=== PATIENT | female | born 1955 | race African-American/Black ===

== ENCOUNTER 2019-03-03 10:10 | Day surgery (SDC) | payer MEDICARE ==
[2019-02-28 11:10] VITALS: BMI 31.0
[2019-03-03] MEDS ORDERED: Midazolam HCl 2 mg/2 ml Vial ONE (11:37)
--- NOTE | 2019-03-03 13:04 | MRI ---
LUMBAR SPINE MRI WITH AND WITHOUT CONTRAST: DATE: 03/03/2019. HISTORY: Back pain with lower extremity radiculopathy. TECHNIQUE: Multiplanar multisequence MR imaging of the lumbar spine provided with and without contrast. FINDINGS: Posterior fusion hardware present at the lumbosacral junction which appears to include bilateral L5 a nd S1 pedicle screws with vertically oriented interlocking rods. The sagittal STIR imaging demonstrates no focal area of osseous marrow edema. On the basis of 5 lumbar type vertebral bodies, the conus medullaris terminates at the T12-L1 level. T12-L1: Intervertebral disc height and signal intensity is within normal limits. Bilateral facet hype rtrophy noted. No significant central canal or neural foraminal stenosis. L1-2: There is disc space narrowing and disc desiccation with disc bulge. Bilateral laminectomy williamson es are present. Bilateral facet hypertrophy is noted with mild left neural foraminal stenosis. L2-3: There is disc space narrowing and disc desiccation with disc bulge. Bilateral laminectomy williamson es are present. No central canal stenosis. No significant neural foraminal stenosis. L3-4: There is disc space narrowing and disc desiccation with disc bulge. Bilateral laminectomy williamson es are present. No central canal stenosis. There is moderate right and mild left neural foraminal stenosis. L4-5: Disc space narrowing with disc desiccation and disc bulge. Bilateral laminectomy changes with n o significant central canal stenosis. Bilateral facet hypertrophy with moderate bilateral neural foraminal stenosis, left greater than right. L5-S1: Bilateral laminectomy changes are noted. There is disc space narrowing and disc desiccation wi th disc osteophyte complex. No significant central canal stenosis. Mild right and moderate left neural foraminal stenosis suspected. Evaluation of the neural foramina is slightly limited on the bas is of artifact from pedicle screws. There is an intervertebral disc device at the L5-S1 level. 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 The postcontrast imaging demonstrates no abnormal enhancement involving the contents of the thecal sa c, the intervertebral discs, or the imaged osseous structures. IMPRESSION: Multilevel postoperative and degenerative change within the lumbar spine as described above. Transcribed Date/Time: 03/03/2019 1:23 PM
== END 2019-03-03 14:10 | disposition home or self-care (01) ==
LOC: SDC/OP 10:10
PROVIDERS: ATTEND Neurological Surgery
DX: M51.16 Intervertebral disc disorders with radiculopathy, lumbar region (principal); M48.061 Spinal stenosis, lumbar region without neurogenic claudication; I10 Essential (primary) hypertension; M19.90 Unspecified osteoarthritis, unspecified site; Z79.82 Long term (current) use of aspirin; Z79.899 Other long term (current) drug therapy; Z95.5 Presence of coronary angioplasty implant and graft; Z96.619 Presence of unspecified artificial shoulder joint; Z96.649 Presence of unspecified artificial hip joint; Z96.659 Presence of unspecified artificial knee joint; Z98.1 Arthrodesis status
CPT/HCPCS: 36415; 72158; 82565; J2250